=== PATIENT | female | born 1945 | race Caucasian/White ===

== ENCOUNTER 2018-03-06 11:00 | Outpatient (CLI) | payer MEDICARE, BC | END 2018-03-06 11:01 | disposition home or self-care (01) | LOC: BICMAMMO 11:00 | PROVIDERS: ATTEND Family Medicine | DX: Z12.31 Encounter for screening mammogram for malignant neoplasm of breast (principal); Z80.3 Family history of malignant neoplasm of breast | CPT/HCPCS: 77063; 77067 ==

== ENCOUNTER 2019-03-26 10:44 | Outpatient (CLI) | payer MEDICARE, BC ==
--- NOTE | 2019-03-26 11:25 | MMO ---
Bilateral MAMMO Bilat Screen DDI+JAELYN. CLINICAL HISTORY: Patient is 73 years old and is seen for screening. The patient has no family history of breast cancer. The patient has no personal history of cancer. VIEWS: The views performed were: bilateral craniocaudal with tomosynthesis; bilateral mediolateral oblique with tomosynthesis; and right mediolateral oblique. FILMS COMPARED: The present examination has been compared to prior imaging studies performed at [facility] on 01/11/2015, 01/31/2016, 01/31/2017 and 03/06/2018. MAMMOGRAM FINDINGS: There are scattered fibroglandular densities. There are no suspicious masses, suspicious calcifications, or new areas of architectural distortion. IMPRESSION: THERE IS NO MAMMOGRAPHIC EVIDENCE OF MALIGNANCY. A ROUTINE FOLLOW-UP MAMMOGRAM IN 1 YEAR IS RECOMMENDED. THE RESULTS OF THIS EXAM WERE SENT TO THE PATIENT. ACR BI-RADS Category 1 - Negative MAMMOGRAPHY NOTE: 1. A negative mammogram report should not delay a biopsy if a dominant of clinically suspicious mass is present. 2. Approximately 10% to 15% of breast cancers are not detected by mammography. 3. Adenosis and dense breasts may obscure an underlying neoplasm. Reported by: Rikki TIMMONS Electonically Signed: [id number]
== END 2019-03-26 10:45 | disposition home or self-care (01) ==
LOC: BICMAMMO 10:44
PROVIDERS: ATTEND Family Medicine
DX: Z12.31 Encounter for screening mammogram for malignant neoplasm of breast (principal)
CPT/HCPCS: 77063; 77067

== ENCOUNTER 2020-01-13 14:57 | Observation (INO) | payer MEDICARE, BC ==
[2020-01-13 15:25] LABS: #Basophils 0.1 thou/uL (0.0-0.2); #Eosinphils 0.2 thou/uL (0.0-0.7); #Lymphocytes 3.8 thou/uL (1.20-3.40); #Monocytes 0.7 thou/uL (0.11-0.59); #Neutrophils 6.5 thou/uL (1.40-6.50); %Basophils 0.6 % (0.0-1.0); %Eosinophils 1.4 % (0.0-10.0); %Monocytes 6.2 % (0.0-10.0); %Neutrophils 57.8 % (42.0-75.0); Hemoglobin 15.1 g/dL (12.0-16.0); Mean Corpuscular HGB CONC 33.9 g/dL (32.0-36.0); Mean Corpuscular Hemoglobin 29.9 pg (27.0-31.0); Mean Corpuscular Volume 88.1 fL (78.0-98.0); Mean Platelet Volume 7.1 fL (7.4-10.4); Platelet Count 243 thou/uL (130-400); RBC Distribution Width 12.2 % (11.5-14.5); Red Blood Cell (RBC) Count 5.04 mill/uL (4.20-5.40); White Blood Cell (WBC) Count 11.2 thou/uL (4.8-10.8)
[2020-01-13 15:31] LABS: INR-International Normal Ratio 0.9; PTT 24.2 SEC (22.9-36.1); Prothrombin Time 12.1 sec (12.0-14.7)
--- NOTE | 2020-01-13 15:44 | CT ---
CT HEAD WITHOUT CONTRAST: INDICATION: Mental status change. Level II stroke. Aphasia. COMPARISON: No comparison. FINDINGS: Ventricles have normal size and position. Mild cortical volume loss. Focal lucency in the periventricular white matter right frontal lobe region cyst old lacunar infarct. There is no evidence of acute cortical infarct. There is no mass or hemorrhage. Sinuses and masto ids are clear. IMPRESSION: No evidence of acute process. Findings related to Dr. Mix at the time of dictation. CODE CR POS: JUAN JOSÉ
[2020-01-13 15:46] LABS: ALT (SGPT) 41 U/L (8-55); AST (SGOT) 33 U/L (5-34); Albumin 4.5 g/dL (3.4-4.8); Alkaline Phosphatase 85 U/L (40-110); Anion Gap 14 mmol/L (10-20); BUN (Urea Nitrogen) 22 mg/dL (9.8-20.1); Bilirubin, Total 0.4 mg/dL (0.2-1.2); Calc. Creatinine Clearance 0 mL/min (70-130); Calcium 9.5 mg/dL (7.8-10.44); Carbon Dioxide 25 mmol/L (23-31); Chloride 103 mmol/L (98-107); Estimated GFR-MDRD 50; Globulin 2.4 g/dL (2.4-3.5); Glucose 175 mg/dL (83-110); Potassium 4.3 mmol/L (3.5-5.1); Protein, Total 6.9 g/dL (6.0-8.3); Sodium 138 mmol/L (136-145)
[2020-01-13] MEDS ORDERED: Aspirin Chewable 81 MG TAB ONE (16:35)
[2020-01-13] MEDS ORDERED: hydrALAZINE 20 MG/ML VIAL SLOW IVP PRN (17:44)
[2020-01-13 19:46] VITALS: BMI 26.9
--- NOTE | 2020-01-13 19:53 | ULT ---
BILATERAL CAROTID DUPLEX ULTRASOUND: HISTORY: Transient ischemic attack TECHNIQUE: Grayscale, color-flow and spectral Doppler ultrasound imaging of the extracranial carotid artery syst ems and vertebral arteries was performed bilaterally. FINDINGS: There is calcified plaque in the right carotid bifurcation and proximal internal carotid artery. No significant atherosclerotic disease of left carotid artery. The peak systolic velocity in the right ICA measures 102.5 cm/s. The peak systolic velocity in the r ight CCA measures 140.9 cm/s. The peak systolic velocity in the left ICA measures 66.9 cm/s. The peak systolic velocity in the l eft CCA measures 79.5 cm/s. The right IC/CC ration is0.7. The left IC/CC ratio is 0.8. Vertebral flow: antegrade, bilaterally. . IMPRESSION: 1. Calcified plaque in the right carotid bifurcation and proximal internal carotid artery 2. Peak systolic velocity of the proximal right common carotid suggesting moderate (50-69 percent) st enosis Transcribed Date/Time: 01/13/2020 8:58 PM
[2020-01-13] MEDS ORDERED: Nitrofurantoin Monohyd/M-Cryst 100 MG CAP PO SCH (21:00)
[2020-01-13] MEDS: Atorvastatin Calcium 40 MG TAB PO SCH (22:20)
--- NOTE | 2020-01-14 01:20 | HP ---
CHIEF COMPLAINT: Expressive aphasia. HISTORY OF PRESENT ILLNESS: The patient is a 74-year-old female with a past medical history of frequent UTIs and seasonal allergies, who presented to the hospital with complaints of expressive aphasia x1 day. The patient stated that she was with her and went for lunch. After lunch, she started feeling unwell, felt initially lightheaded and was unable to have a conversation with her . She stated that they got into their car, started driving, she continued to have this expressive aphasia. She started having some weakness in her right upper extremity. The patient at this time went to the grocery store. She was unable to open her car door and was unable to get out of the car. At this time, the drove her to her primary care doctor's office, Dr. Ayers, who advised the patient to come into the ER for further evaluation. PAST MEDICAL HISTORY: She has a history of frequent UTIs. She has seasonal allergies. PAST SURGICAL HISTORY: She has had a cholecystectomy. She has had a cataract surgery and a neuroma removed from her bilateral feet. ALLERGIES: SHE IS ALLERGIC TO PENICILLIN AND CODEINE. SHE GETS A RASH. MEDICATIONS: Her medications are as of the following, she is on: 1. Singulair 10 mg daily. 2. Nitrofurantoin 100 mg daily. FAMILY HISTORY: Father at the age of 42 with heart attack. Mother lived to be 84. SOCIAL HISTORY: She denies any alcohol use, drug use, or smoking history. She is a full code. She lives with her . REVIEW OF SYSTEMS: All negative except for the ones mentioned above in the HPI. PHYSICAL EXAMINATION: VITAL SIGNS: As of the following; temperature of 98.9, 18, 97% on room air, 201/97, pulse of 86. GENERAL: She is awake, alert, and oriented x3. Does not appear in distress. CV: S1, S2 present. No murmurs, rubs, or gallops. LUNGS: Clear to auscultation. No rhonchi or wheezes noted. ABDOMEN: Soft and nontender. Bowel sounds present x2. EXTREMITIES: Mild lower extremity pitting edema. Pedal pulses are present x2. NEUROVASCULAR: No focal deficits noted. A 5/5 bilateral upper extremity and lower extremity strength. Sensation intact in bilateral upper and bilateral lower. Awgukt-kn-gkub and coiz-ip-kkrk intact. SKIN: No cuts, lesions, or bruises noted. LABORATORY RESULTS: As of the following; troponin is negative. Sodium of 138, potassium of 4.3, BUN of 22, creatinine 1.06. AST of 33, ALT of 41, glucose of 175. Her PT, INR were normal. WBCs of 11.2, hemoglobin of 15.1, hematocrit of 44.4, platelets of 243. She had a CT brain without contrast which indicated she has a focal lucency in the periventricular white matter, right frontal lobe region, appears to be an old lacunar infarct. EKG appears to be in normal sinus, no ST changes or T-wave abnormalities noted. ASSESSMENT AND PLAN: The patient is a very pleasant 74-year-old female, who presents to the hospital with complaints of expressive aphasia. 1. Expressive aphasia, possible TIA, possible stroke, currently most likely her symptoms have resolved, most likely a TIA. We will go ahead and get an MRI brain. We will get an echo and carotid Dopplers. The patient does not take an aspirin. We will start her on aspirin and a statin. We will check a lipid panel in the morning. We will admit her to telemetry. I have notified the patient if her symptoms recur that she needs to notify the nursing staff. 2. Hypertension. The patient states that she has had situational hypertension when she gets very anxious. She has never really taken any medications for that; however, currently her blood pressure is 201/97. We will put on some PRNs to bring her pressure down gently. Her expressive aphasia has completely resolved. She has an NIH score of 0 right now. 3. Frequent urinary tract infections. We will continue her nitrofurantoin. 4. Deep venous thrombosis prophylaxis. We will put the patient on SCD and subcu Lovenox. Job ID: [id number]
[2020-01-14] MEDS ORDERED: Acetaminophen 325 MG TAB PO PRN (05:43)
[2020-01-14 06:02] LABS: Cardiac Risk 5.4 (Less than 4.5)
[2020-01-14] MEDS ORDERED: Enoxaparin Sodium 40 MG/0.4 ML SYRINGE SC SCH (09:00)
[2020-01-14] MEDS ORDERED: Aspirin 81 mg Enteric Coated Tablet PO SCH (09:00)
[2020-01-14] MEDS ORDERED: Prevnar 13-Val Conj/PF 0.5 ML SYRINGE IM ONE (09:00)
--- NOTE | 2020-01-14 09:36 | MRI ---
BRAIN MRI WITHOUT IV CONTRAST: HISTORY: Weakness, stroke versus TIA. FINDINGS: Multiplanar, multisequence imaging of the brain is performed without IV contrast. Mild ethmoid sinus mucosal congestion. No focal mass or midline shift. No intra- or extraaxial hemorrhage. No eviden ce for acute infarct. Minimal scattered chronic-appearing white matter changes including the right p eriventricular region. IMPRESSION: Mild chronic white matter ischemic change. No mass or hemorrhage. No evidence for acute infarct. POS: RRE
[2020-01-14 11:07] VITALS: TEMP 98
[2020-01-14] MEDS ORDERED: Amlodipine 10 MG TAB PO SCH (11:15)
[2020-01-14] MEDS: Lisinopril 20 MG TAB PO SCH ×2 (13:06→16:19)
--- NOTE | 2020-01-14 13:32 | CON ---
NEUROLOGY CONSULTATION DATE OF CONSULTATION: 01/14/2020 REASON FOR CONSULTATION: Transient ischemic attack. HISTORY OF PRESENT ILLNESS: Ms. Phoenix Brooks is a 74-year-old female with medical history significant for UTI and seasonal allergies, presented to the hospital with an episode of difficulty getting words out and incoordination of the right upper extremity. The history is taken from the patient, who is a good historian. According to the patient, she was in the car when she had difficulty getting words out and then she felt like she had some weakness and was unable to open the car door when she came back from the grocery store. The noticed that she has difficulty speaking and decided to drive her to the primary care office, Dr. Ayers, who advised her to come to the ED for further evaluation. The episode lasted for a couple of hours and then she is back to her baseline. She denies nausea, vomiting, headache, dizziness, vertigo, loss of vision or loss of consciousness, abdominal pain, chest pain associated with the episodes. REVIEW OF SYSTEMS: All 10 systems were reviewed and were negative except for pertinent positives and negatives mentioned in the HPI. PAST MEDICAL HISTORY: 1. Seasonal allergies. 2. Frequent UTIs. PAST SURGICAL HISTORY: 1. Cholecystectomy. 2. Cataract surgery. 3. Neuroma removal from the feet. ALLERGIES: PENICILLIN, CODEINE. MEDICATIONS: 1. Singulair 10 mg daily. 2. Nitrofurantoin 100 mg daily. FAMILY HISTORY: Father had history of heart attack at young age of 42. SOCIAL HISTORY: , lives with her . Denies smoking, alcohol, or illegal drug use. PHYSICAL EXAMINATION: VITAL SIGNS: Blood pressure 180/90, pulse 80, respiratory rate 18. HEENT: Normocephalic and atraumatic. CVS: Regular rate and rhythm. CHEST: Clear. ABDOMEN: Soft. NEUROLOGICAL: Mental status; the patient is alert and oriented to person, place , and time. Speech is clear. Cranial nerves 2 through 12 are intact. Motor; muscle tone and bulk are normal. Strength 5/5 bilaterally. Cerebellar; finger-nose testing intact. Sensory intact. Reflexes 2+ bilaterally. Gait within normal limit. ASSESSMENT AND PLAN: Ms. Phoenix Brooks is a pleasant 74-year-old female, who presented with expressive aphasia and right upper extremity weakness and incoordination, most likely a TIA from the left frontal motor region involving the motor and the language area. MRI Brain did not reveal acute intracranial process Carotid Doppler showed 50% to 69% stenosis in the right ICA. Consider Vascular Surgery input. Continue aspirin and statin for secondary stroke prevention. Neuro checks every 4 hours. Control of blood pressure and blood glucose. Continue home medications and medical management per primary team. Plan discussed with primary attending Dr. Wood. Thank you for the consult. Job ID: [id number] CARMEN
--- NOTE | 2020-01-14 15:23 | EKG ---
Test Reason : Blood Pressure : / mmHG Vent. Rate : 084 BPM Atrial Rate : 084 BPM P-R Int : 146 ms QRS Dur : 088 ms QT Int : 412 ms P-R-T Axes : 041 006 070 degrees QTc Int : 486 ms Normal sinus rhythm Possible Left atrial enlargement Left ventricular hypertrophy Cannot rule out Septal infarct , age undetermined Abnormal ECG Confirmed by RITIKA MONTANO DO ([id number]), food editor MATA BUSTAMANTE ([id number]) on 01/14/2020 3:22:47 PM Referred By: Confirmed By:RITIKA MONTANO DO
[2020-01-14 17:28] VITALS: BP 165/82
[2020-01-14] MEDS: Atorvastatin Calcium 40 MG TAB PO SCH (18:57)
--- NOTE | 2020-01-14 20:34 | CON ---
DATE OF CONSULTATION: 01/14/2020 REQUESTING PHYSICIAN: Dr. Arleen Wood. CONSULTING NEUROLOGIST: Dr. Bardales. PRIMARY CARE PHYSICIAN: Dr. [place] Ayers. CHIEF COMPLAINT: Difficulty speaking and right arm weakness and paresthesias. HISTORY OF PRESENT ILLNESS: The patient is a 74-year-old woman with scant past medical history. She describes her blood pressure is being borderline, but she has never been on antihypertensives. She was riding in the car with her , and she realized that while she could understand what her was saying when he talked, that she was not able to reply to him. When they arrived at a grocery store, where they were hating, her right arm was too weak to be able to open her passenger side door, and at that point, her realized something was wrong and he sought medical attention. They were directed to the emergency room. By the time they arrived, her symptoms had resolved. PAST MEDICAL HISTORY: Significant for the above-mentioned, history of borderline hypertension and frequent urinary tract infections. She had a cholecystectomy, and she describes having some left eye retinal hemorrhages. HOME MEDICATIONS: 1. Singulair. 2. Nitrofurantoin. 3. Enablex. She is currently on, 1. Singulair. 2. Nitrofurantoin. 3. Trospium as a therapeutic substitution. 4. Lisinopril 20 mg b.i.d. 5. Norvasc 10 mg a day. 6. Lipitor 40 mg at bedtime. 7. Baby aspirin a day. 8. 40 mg of Lovenox subcu daily. 9. P.r.n. IV hydralazine. ALLERGIES: SHE REPORTS ALLERGIES TO CODEINE, WHICH SHE DESCRIBES CAUSING ANAPHYLAXIS; PENICILLIN, WHICH CAUSE HIVES; AND SULFONAMIDES, WHICH PRODUCE A RASH. SOCIAL HISTORY: She does not drink or smoke. REVIEW OF SYSTEMS: Negative for any antecedent eye, speech, facial, or extremity symptoms consistent with TIAs. She describes an episode about 30 years ago of left shoulder pain that was persistent that was worked up as a possible cardiac event, but she has had no palpitations, chest pain, or shortness of breath. PHYSICAL EXAMINATION: GENERAL: She is in no distress. She is able to speak without any difficulty. VITAL SIGNS: On arrival in the emergency room, her heart rate was 85, blood pressure 187/100, temperature was 98.9, room air O2 saturations were 94%. Since admission to the [facility], her heart rates have mostly been in the 70s to 80s. Her blood pressures were as high as 210/100, but have mostly now been in the 150s and 160s over 65 to 80 range. HEENT: She has no xanthelasma. No JVD. No carotid bruits. CHEST: Clear to auscultation. CARDIOVASCULAR: She has regular rate and rhythm without murmur or gallop. ABDOMEN: Soft and nontender. NEUROLOGIC: Cranial nerves 2 through 12 are grossly intact as is upper and lower extremity strength. LABORATORY DATA: She had a white count of 11.2, hemoglobin of 15.1, hematocrit 44.4, and platelet count of 243,000. PT was 12.1, INR 0.9, PTT 24.2. Her electrolytes were normal. Glucose was 175. Fingerstick Accu-Chek at roughly the same time was 183. BUN was 22, creatinine 1.06, calcium was 9.5. LFTs were normal. Albumin was 4.5. Troponin was 0.014. Triglycerides were 76, cholesterol 178, LDL was 130, HDL 33. DIAGNOSTIC DATA: Her head CT without contrast showed some periventricular lucency suggestive of old lacunar infarct, but no evidence of acute infarct, masses, or hemorrhage. The MRI suggested mild chronic white matter ischemic changes without acute infarct, mass, or hemorrhage. Her echocardiogram showed some mild concentric LVH and diastolic dysfunction, but an LVEF of 60% to 65%. Her carotid ultrasound showed some focal plaque at the right bulb with no apparent compromise of the lumen. Right-sided internal carotid velocities were 93, 103, and 63 cm/second, common carotid velocities were 141, 132, and 85 for ratio of 0.73. On the left side, the internal carotid velocities were 67, 63, and 64 cm/second, common carotid were 74, 80, and 62, ratio 0.84. There was minimal turbulence noted on color-flow Doppler associated with proximal right common carotid velocities. There was no spectral broadening seen on the studies. IMPRESSION/RECOMMENDATIONS: I do not think that I would place too much significance on the interpretation of 50% to 69% stenosis in the proximal common carotid based on this isolated and mildly elevated velocity in the proximal carotid system. There are no real step-ups. There is not much in the way of plaque and the one potentially abnormal finding is associated with the right carotid system and the patient's symptoms were left hemispheric. She had not been on aspirin or statin prior to this, and I agree that starting those is appropriate at least here in the hospital. Her blood pressures have been sufficiently elevated to warrant treatment if that is reflective of her typical blood pressures. The only other issue of note is the elevated blood sugars that she had on presentation, might warrant followup. With respect to her carotids, I think that one could make a strong argument for annual surveillance with ultrasonography, but I do not think that based on what I see here. I would pursue that any more aggressively than on an annual basis unless she has recurrent transient ischemic attacks on aspirin. Job ID: [id number]
[2020-01-14] MEDS ORDERED: Trospium 20 MG TAB PO SCH (21:00)
[2020-01-14] MEDS ORDERED: Montelukast Sodium 10 mg Tablet PO SCH (21:00)
[2020-01-14] MEDS ORDERED: Lisinopril 20 MG TAB PO SCH (21:00)
[2020-01-15] MEDS ORDERED: Amlodipine 10 MG TAB PO SCH (09:00)
== END 2020-01-14 19:21 | disposition home or self-care (01) ==
LOC: ERS 14:57 → 2SE 16:40
PROVIDERS: ADMIT Internal Medicine; ATTEND Internal Medicine
DX: R47.01 Aphasia (principal); R53.1 Weakness; R20.2 Paresthesia of skin; I65.21 Occlusion and stenosis of right carotid artery; N39.0 Urinary tract infection, site not specified; R73.9 Hyperglycemia, unspecified; I10 Essential (primary) hypertension; J30.2 Other seasonal allergic rhinitis; Z79.2 Long term (current) use of antibiotics; Z79.899 Other long term (current) drug therapy; Z88.0 Allergy status to penicillin; Z88.2 Allergy status to sulfonamides; Z88.5 Allergy status to narcotic agent; Z23 Encounter for immunization
CPT/HCPCS: 70450; 70551; 80053; 80061; 82962; 84484; 85025; 85610; 85730; 90670; 93005; 93306; 93880; 96374; 97116; 97139 ×3; 99285; G0009; G0378 ×3; 36415; 36416; 90471; J0360

== ENCOUNTER 2020-03-28 11:20 | Outpatient (CLI) | payer MEDICARE, BC ==
--- NOTE | 2020-03-28 12:16 | MMO ---
Bilateral MAMMO Bilat Screen DDI+JAELYN. CLINICAL HISTORY: Patient is 74 years old and is seen for screening. The patient has no family history of breast cancer. The patient has no personal history of cancer. VIEWS: The views performed were: bilateral craniocaudal with tomosynthesis and bilateral mediolateral oblique with tomosynthesis. FILMS COMPARED: The present examination has been compared to prior imaging studies performed at [facility] on 01/31/2016, 01/31/2017, 03/06/2018 and 03/26/2019. This study has been interpreted with the assistance of computer-aided detection. MAMMOGRAM FINDINGS: There are scattered fibroglandular densities. Finding 1: There are stable benign appearing calcifications seen in both breasts. Finding 2: There are stable benign appearing densities seen in both breasts. There are no suspicious masses, suspicious calcifications, or new areas of architectural distortion. IMPRESSION: THERE IS NO MAMMOGRAPHIC EVIDENCE OF MALIGNANCY. A ROUTINE FOLLOW-UP MAMMOGRAM IN 1 YEAR IS RECOMMENDED. THE RESULTS OF THIS EXAM WERE SENT TO THE PATIENT. ACR BI-RADS Category 2 - Benign finding MAMMOGRAPHY NOTE: 1. A negative mammogram report should not delay a biopsy if a dominant of clinically suspicious mass is present. 2. Approximately 10% to 15% of breast cancers are not detected by mammography. 3. Adenosis and dense breasts may obscure an underlying neoplasm. Reported by: DEANNE CASTILLO MD Electonically Signed: [id number]
== END 2020-03-28 11:21 | disposition home or self-care (01) ==
LOC: BICMAMMO 11:20
PROVIDERS: ATTEND Family Medicine
DX: Z12.31 Encounter for screening mammogram for malignant neoplasm of breast (principal)
CPT/HCPCS: 77063; 77067

== ENCOUNTER 2021-05-11 09:36 | Outpatient (CLI) | payer MEDICARE, BC | END 2021-05-11 09:37 | disposition home or self-care (01) | LOC: BICMAMMO 09:36 | PROVIDERS: ATTEND Family Medicine | DX: Z12.31 Encounter for screening mammogram for malignant neoplasm of breast (principal); Z80.3 Family history of malignant neoplasm of breast | CPT/HCPCS: 77063; 77067 ==

== ENCOUNTER 2022-05-15 10:18 | Outpatient (CLI) | payer MEDICARE, BC | END 2022-05-15 10:19 | disposition home or self-care (01) | LOC: BICMAMMO 10:18 | PROVIDERS: ATTEND Family Medicine | DX: Z12.31 Encounter for screening mammogram for malignant neoplasm of breast (principal); Z80.3 Family history of malignant neoplasm of breast | CPT/HCPCS: 77063; 77067 ==

== ENCOUNTER 2022-06-21 08:40 | Day surgery (SDC) | payer MEDICARE, BC ==
[2022-06-20 12:24] VITALS: BMI 26.6
[2022-06-21] MEDS ORDERED: Midazolam HCl 2 mg/2 ml Vial ONE (15:12)
[2022-06-21] MEDS ORDERED: Fentanyl 100 MCG/2 ML VIAL ONE (15:12)
[2022-06-21] MEDS ORDERED: Heparin 10,000 UNITS/ 10 ML VIAL ONE (15:12)
[2022-06-21] MEDS ORDERED: Lidocaine 1% (PF) 30 ML VIAL ONE ×2 (15:12→15:13)
[2022-06-21] MEDS ORDERED: hydrALAZINE 20 MG/ML VIAL ONE ×2 (15:52→18:03)
[2022-06-21] MEDS ORDERED: Clopidogrel Bisulfate 75 MG TAB ONE ×2 (17:05→19:18)
[2022-06-21] MEDS ORDERED: Fentanyl 100 MCG/2 ML VIAL SLOW IVP PRN (17:25)
[2022-06-21] MEDS ORDERED: Acetaminophen 325 MG TAB PO PRN (17:26)
[2022-06-21] MEDS ORDERED: Ondansetron PF 4 MG/2 ML Vial IVP PRN (17:26)
[2022-06-21] MEDS ORDERED: hydrALAZINE 20 MG/ML VIAL SLOW IVP PRN (17:27)
[2022-06-21] MEDS ORDERED: Clopidogrel Bisulfate 75 MG TAB PO SCH (17:30)
== END 2022-06-21 19:55 | disposition home or self-care (01) ==
LOC: SDC 08:40
PROVIDERS: ATTEND Thoracic Surgery (Cardiothoracic Vascular Surgery)
PROC: 047L3Z1 Dilation of Left Femoral Artery using Drug-Coated Balloon, Percutaneous Approach (ICD-10-PCS; principal; 2022-06-21)
DX: I77.9 Disorder of arteries and arterioles, unspecified (principal); I10 Essential (primary) hypertension; E78.00 Pure hypercholesterolemia, unspecified; Z86.73 Personal history of transient ischemic attack (TIA), and cerebral infarction without residual deficits; Z79.2 Long term (current) use of antibiotics; Z79.82 Long term (current) use of aspirin; Z79.899 Other long term (current) drug therapy; Z88.0 Allergy status to penicillin; Z88.2 Allergy status to sulfonamides; Z88.5 Allergy status to narcotic agent
CPT/HCPCS: 36247; 37224; 76942; 85347; 99152; 99153; C1725; C1760; C1769; C1887; C1894; C2623; J0360; J1644; J2001; J2250; J3010

== ENCOUNTER 2022-10-22 09:56 | Outpatient (CLI) | payer MEDICARE, BC ==
[2022-10-22 10:42] LABS: Hemoglobin 12.5 g/dL (12.0-15.5); Mean Corpuscular HGB CONC 31.7 g/dL (32.0-36.0); Mean Corpuscular Volume 88.3 fl (81.6-98.3); Platelet Count 236 10x3/uL (150-450); RBC Distribution Width 13.2 % (11.5-14.5); Red Blood Cell (RBC) Count 4.46 10x6/uL (3.90-5.03); White Blood Cell (WBC) Count 9.5 10x3/uL (3.5-10.5)
[2022-10-22 11:09] LABS: Anion Gap 16 mmol/L (10-20); BUN (Urea Nitrogen) 23 mg/dL (9.8-20.1); Calc. Creatinine Clearance 0 mL/min (70-130); Calcium 10.1 mg/dL (7.8-10.44); Carbon Dioxide 26 mmol/L (23-31); Chloride 103 mmol/L (98-107); Estimated GFR 57; Glucose 110 mg/dL (83-110); Potassium 4.5 mmol/L (3.5-5.1); Sodium 140 mmol/L (136-145)
== END 2022-10-22 09:57 | disposition home or self-care (01) ==
LOC: LABBT 09:56
PROVIDERS: ATTEND Thoracic Surgery (Cardiothoracic Vascular Surgery)
DX: Z01.812 Encounter for preprocedural laboratory examination (principal); I73.9 Peripheral vascular disease, unspecified
CPT/HCPCS: 80048; 85027

== ENCOUNTER 2022-10-23 05:31 | Day surgery (SDC) | payer MEDICARE, BC ==
[2022-10-22 12:38] VITALS: BMI 26.6
[2022-10-23] MEDS ORDERED: Heparin 10,000 UNITS/ 10 ML VIAL ONE (06:22)
[2022-10-23] MEDS ORDERED: Lidocaine 1% (PF) 30 ML VIAL ONE ×2 (06:22→07:08)
[2022-10-23] MEDS ORDERED: Midazolam HCl 2 mg/2 ml Vial ONE (06:58)
[2022-10-23] MEDS ORDERED: FENTANYL 50 MCG/ML 1 ML VIAL ONE (06:59)
[2022-10-23] MEDS ORDERED: hydrALAZINE 20 MG/ML VIAL ONE (07:08)
[2022-10-23] MEDS ORDERED: Iopamidol 370 76% 100 ML VIAL ONE (08:55)
== END 2022-10-23 11:00 | disposition home or self-care (01) ==
LOC: SDC 05:31
PROVIDERS: ATTEND Thoracic Surgery (Cardiothoracic Vascular Surgery)
PROC: 047K3Z1 Dilation of Right Femoral Artery using Drug-Coated Balloon, Percutaneous Approach (ICD-10-PCS; principal; 2022-10-23)
DX: I70.211 Atherosclerosis of native arteries of extremities with intermittent claudication, right leg (principal); I10 Essential (primary) hypertension; E78.00 Pure hypercholesterolemia, unspecified; Z86.73 Personal history of transient ischemic attack (TIA), and cerebral infarction without residual deficits; Z79.02 Long term (current) use of antithrombotics/antiplatelets; Z79.2 Long term (current) use of antibiotics; Z79.82 Long term (current) use of aspirin; Z79.899 Other long term (current) drug therapy; Z88.0 Allergy status to penicillin; Z88.2 Allergy status to sulfonamides; Z88.5 Allergy status to narcotic agent
CPT/HCPCS: J0360; J3010; 37246; 99152; 99153; C1725; C1760; C1769; C1887; C1894; C2623; J1644; J2001; J2250

== ENCOUNTER 2023-05-29 10:24 | Outpatient (CLI) | payer BC, MEDICARE | END 2023-05-29 10:25 | disposition home or self-care (01) | LOC: BICMAMMO 10:24 | PROVIDERS: ATTEND Family Medicine | DX: Z12.31 Encounter for screening mammogram for malignant neoplasm of breast (principal); Z80.3 Family history of malignant neoplasm of breast | CPT/HCPCS: 77063; 77067 ==

== ENCOUNTER 2024-06-11 12:19 | Outpatient (CLI) | payer MEDICARE | END 2024-06-11 12:20 | disposition home or self-care (01) | LOC: BICMAMMO 12:19 | PROVIDERS: ATTEND Family Medicine | DX: Z12.31 Encounter for screening mammogram for malignant neoplasm of breast (principal); Z80.3 Family history of malignant neoplasm of breast | CPT/HCPCS: 77063; 77067 ==

== ENCOUNTER 2024-10-02 05:44 | Day surgery (SDC) | payer MEDICARE ==
[2024-09-29 10:30] VITALS: BMI 25.1
[2024-10-02] MEDS ORDERED: Heparin 10,000 UNITS/ 10 ML VIAL ONE (06:18)
[2024-10-02] MEDS ORDERED: Midazolam HCl 2 mg/2 ml Vial ONE (06:18)
[2024-10-02] MEDS ORDERED: fentaNYL 50 mcg/mL 1 mL Vial ONE (06:18)
[2024-10-02] MEDS ORDERED: hydrALAZINE 20 MG/ML VIAL ONE ×2 (06:56→07:54)
== END 2024-10-02 10:00 | disposition home or self-care (01) ==
LOC: SDC 05:44
PROVIDERS: ATTEND Thoracic Surgery (Cardiothoracic Vascular Surgery)
PROC: B40GYZZ Plain Radiography of Left Lower Extremity Arteries using Other Contrast (ICD-10-PCS; principal; 2024-10-02)
PROC: B400YZZ Plain Radiography of Abdominal Aorta using Other Contrast (ICD-10-PCS; 2024-10-02)
DX: I73.9 Peripheral vascular disease, unspecified (principal); I10 Essential (primary) hypertension; Z86.73 Personal history of transient ischemic attack (TIA), and cerebral infarction without residual deficits; Z98.890 Other specified postprocedural states; Z79.899 Other long term (current) drug therapy; Z79.82 Long term (current) use of aspirin; Z88.0 Allergy status to penicillin; Z88.5 Allergy status to narcotic agent; Z88.2 Allergy status to sulfonamides
CPT/HCPCS: 36247; 75710; C1760; C1769 ×3; C1887 ×2; C1894; J0360; J1644; J2250; J3010; 75625; 75774; 99152; 99153

== ENCOUNTER 2025-06-15 10:46 | Outpatient (CLI) | payer MEDICARE | END 2025-06-15 10:47 | disposition home or self-care (01) | LOC: BICMAMMO 10:46 | PROVIDERS: ATTEND Family Medicine | DX: Z12.31 Encounter for screening mammogram for malignant neoplasm of breast (principal); Z78.0 Asymptomatic menopausal state; M85.852 Other specified disorders of bone density and structure, left thigh; Z80.3 Family history of malignant neoplasm of breast; Z85.828 Personal history of other malignant neoplasm of skin | CPT/HCPCS: 77063; 77067; 77080 ==